=== PATIENT | male | born 1980 | race Caucasian/White ===

== ENCOUNTER → 2025-02-21 | Outpatient (CLI) | payer BC, SELFPAY ==
--- NOTE | 2025-02-21 11:33 | RAD_ITS ---
PROCEDURE: RIBS UNI MIN 3V W/PA CHEST 02/21/2025 REASON FOR EXAM: FALL LEFT RIB PAIN TECHNIQUE: Procedure Code: RADRIB Modality: DX Procedure: RIBS UNI MIN 3V W/PA CHEST COMPARISON: None. FINDINGS: LUNGS AND PLEURA: The lungs are clear. No pleural effusion or pneumothorax. HEART AND MEDIASTINUM: The heart size and mediastinal contours are normal. BONES: There appear to be nondisplaced fractures of the left posterior 5th and possibly 7th and 8th ribs. RAD/Ribs Uni Min 3V w/PA Chest IMPRESSION: Left posterior 5th rib fracture and possibly posterior 7th and 8th rib fracture s. Reading Location: [id number]
== END | disposition home or self-care (01) ==
PROVIDERS: Referring Provider Student in an Organized Health Care Education/Training Program; Visit Provider Student in an Organized Health Care Education/Training Program
DX: R07.89 Other chest pain (principal)
CPT/HCPCS: 71101